=== PATIENT | female | born 1995 | race Caucasian/White ===

== ENCOUNTER 2021-01-19 05:12 | Inpatient (IN) | payer OTHER ==
[~2021-01-19] VITALS: Ht 167.6 cm; Wt 88.5 kg
[2021-01-19 07:28] LABS: HEMOGLOBIN 11.5 gm/dl (12.3-15.3); RED BLOOD COUNT 3.9 M/UL (4.00-5.10); WHITE BLOOD COUNT 10.2 K/UL (4.5-11.0)
[2021-01-19] MEDS ORDERED: HEMOCYTE324 MG PO (12:14)
[2021-01-19] MEDS ORDERED: IBUPROFEN800 MG PO (12:14)
[2021-01-19] MEDS ORDERED: COLACE100 MG PO (12:14)
[2021-01-19] MEDS ORDERED: BACTRIM DS TAB1 EACH PO (12:14)
[2021-01-20 07:14] LABS: HEMOGLOBIN 11.1 gm/dl (12.3-15.3)
[2021-01-21] MEDS ORDERED: NAPROSYN EC 50500 MG GT (13:15)
== END 2021-01-21 14:22 | disposition home or self-care (01) | DRG 807 ==
LOC: OB 05:12
PROVIDERS: ADMIT Obstetrics & Gynecology
PROC: 10907ZC Drainage of Amniotic Fluid, Therapeutic from Products of Conception, Via Natural or Artificial Opening (ICD-10-PCS; principal; 2021-01-19)
PROC: 10E0XZZ Delivery of Products of Conception, External Approach (ICD-10-PCS; 2021-01-19)
PROC: 10H07YZ Insertion of Other Device into Products of Conception, Via Natural or Artificial Opening (ICD-10-PCS; 2021-01-19)
PROC: 4A1H8CZ Monitoring of Products of Conception, Cardiac Rate, Via Natural or Artificial Opening Endoscopic (ICD-10-PCS; 2021-01-19)
PROC: 10H073Z Insertion of Monitoring Electrode into Products of Conception, Via Natural or Artificial Opening (ICD-10-PCS; 2021-01-19)
PROC: 3E033VJ Introduction of Other Hormone into Peripheral Vein, Percutaneous Approach (ICD-10-PCS; 2021-01-19)
PROC: 3E0234Z Introduction of Serum, Toxoid and Vaccine into Muscle, Percutaneous Approach (ICD-10-PCS; 2021-01-19)
DX: O99.52 Diseases of the respiratory system complicating childbirth (principal); Z37.0 Single live birth; J45.909 Unspecified asthma, uncomplicated; Z20.822 Contact with and (suspected) exposure to COVID-19; Z3A.39 39 weeks gestation of pregnancy; Z88.8 Allergy status to other drugs, medicaments and biological substances; Z23 Encounter for immunization
CPT/HCPCS: 36415; 51702; 81001; 85014; 85018; 85025; 90471; 90715; J2405; J2590; J7120